=== PATIENT | male | born 1995 ===

== ENCOUNTER 2024-12-04 10:23 | Outpatient (REF) | payer OTHER, SELFPAY ==
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
== END 2024-12-04 10:24 | disposition home or self-care (01) ==
LOC: HO.HOSX 10:23
PROVIDERS: Visit Provider Orthopaedic Surgery
DX: Z13.89 Encounter for screening for other disorder (principal)